=== PATIENT | male | born 1980 | race Caucasian/White ===

== ENCOUNTER 2021-08-26 13:31 | Emergency (ER) | payer MEDICARE, OTHER ==
[~2021-08-26] VITALS: Ht 182.9 cm; Wt 53.0 kg
[~2021-08-26 13:31] MED LIST: GABA-585 PO; INSU100I17 SQ; INSU100V13 SQ; SERT25TA PO; TRAZ-120 PO
--- NOTE | 2021-08-26 13:59 | PHYS DOC ---
Past History Past Medical History: Depression, Diabetes Past Surgical History: No Surgical History Alcohol Use: None Drug Use: Marijuana Adult General Chief Complaint Chief Complaint: MECHANICAL FALL HPI HPI Patient is a 41-year-old male presenting via EMS for hyperglycemia and fall. Patient was at home in the shower when he reportedly got weak and had a syncopal episode per daughter who serves as primary caregiver. Patient fell and hit posterior head on side of shower and was initially unresponsive but this self resolved in less than 30 seconds. Patient's blood sugar was checked and read high and so, decision was made to call EMS. On arrival, patient found to be hyperglycemic with [id number] glucose reading high otherwise hemodynamically stable. He was subsequently transported to our facility for evaluation. On arrival, patient not speaking but nodding yes or no to questions, unknown if this is his baseline. Denies being in any pain. Confirms history of presenting illness that he had a syncopal episode with prodromal symptoms of lightheadedness and dizziness prior to his fall. Reports he has otherwise been at baseline health with no recent febrile illness or other sick contact or travel. Does disclose he is a brittle type I diabetic without use of a CGM or recent medication changes Review of Systems Review of Systems Fourteen body systems of review of systems have been reviewed. See HPI for pertinent positives and negative responses, other carbajal all other systems are negative, non-pertinent or non-contributory Allergies Allergies Allergies Coded Allergies Type Severity Reaction Last Updated Verified No Known Drug Allergies 08/27/15 No Physical Exam Physical Exam Constitutional: Appears older than stated age, thin and grossly malnourished, no acute distress, non-toxic appearance. HENT: Normocephalic, atraumatic, bilateral external ears normal, oropharynx moist, no oral exudates, nose normal. Airway patent, tolerating secretions Eyes: PERRLA, EOMI, conjunctiva normal, no discharge. Neck: Normal range of motion, no tenderness, supple, no stridor. Cardiovascular: Heart rate regular, sinus rhythm, no murmurs rubs or gallops Lungs & Thorax: Bilateral breath sounds clear to auscultation Abdomen: Bowel sounds normal, soft, no tenderness, no masses, no pulsatile masses. Nonsurgical abdomen, no peritoneal signs Skin: Warm, dry, no erythema, no rash. Skin breakdown with ulcer present to right anterior knee with 3 cm erythematous border, there is also skin breakdown and ulcer present to lateral portion of the distal right lower extremity superior to lateral malleolus that involves epidermis and dermis only. 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 There is mild skin breakdown to sacral area Back: No tenderness, no CVA tenderness. Extremities: No tenderness, no cyanosis, no clubbing, ROM intact, no edema. Neurologic: Alert and oriented X 3, grossly normal motor & sensory function, no focal deficits noted. Psychologic: Flat affect and mood Current Patient Data Vital Signs Vital Signs Date Time Temp Pulse Resp B/P (MAP) Pulse Ox O2 Delivery O2 Flow Rate FiO2 08/26/21 13:40 97.4 92 24 112/70 (84) 98 Room Air Vital Signs Date Time Temp Pulse Resp B/P (MAP) Pulse Ox O2 Delivery O2 Flow Rate FiO2 08/26/21 13:40 97.4 92 24 112/70 (84) 98 Room Air Lab Results Laboratory Tests Test 08/26/21 13:41 08/26/21 13:50 08/26/21 14:10 08/26/21 14:14 Glucose (Fingerstick) 528 mg/dL White Blood Count 11.7 x10^3/uL Red Blood Count 2.79 x10^6/uL Hemoglobin 7.9 g/dL Hematocrit 25.4 % Mean Corpuscular Volume 91 fL Mean Corpuscular Hemoglobin 28 pg Mean Corpuscular Hemoglobin Concent 31 g/dL Red Cell Distribution Width 15.3 % Platelet Count 538 x10^3/uL Neutrophils (%) (Auto) 78 % Lymphocytes (%) (Auto) 14 % Monocytes (%) (Auto) 6 % Eosinophils (%) (Auto) 2 % Basophils (%) (Auto) 1 % Neutrophils # (Auto) 9.1 x10^3uL Lymphocytes # (Auto) 1.6 x10^3/uL Monocytes # (Auto) 0.7 x10^3/uL Eosinophils # (Auto) 0.2 x10^3/uL Basophils # (Auto) 0.1 x10^3/uL Sodium Level 137 mmol/L Potassium Level 7.3 mmol/L Chloride Level 108 mmol/L Carbon Dioxide Level 24 mmol/L Anion Gap 5 Blood Urea Nitrogen 17 mg/dL Creatinine 1.1 mg/dL Estimated GFR (Cockcroft-Gault) 74.1 BUN/Creatinine Ratio 15 Glucose Level 631 mg/dL Calcium Level 8.3 mg/dL Total Bilirubin 0.2 mg/dL Aspartate Amino Transf (AST/SGOT) 25 U/L Alanine Aminotransferase (ALT/SGPT) 30 U/L Alkaline Phosphatase 244 U/L Troponin I High Sensitivity < 4 ng/L Total Protein 5.7 g/dL Albumin 1.8 g/dL Albumin/Globulin Ratio 0.5 Bedside Venous pH 7.27 Bedside Venous pCO2 48 mmHg Bedside Venous pO2 35 mmHg Venous Blood HCO3 22 mmol/L POC Venous O2 Saturation (Ladan) 58 % Bedside FiO2 21 Influenza Type A (Rapid) Negative Influenza Type B (Rapid) Negative SARS-CoV-2 Antigen (Rapid) Negative Test 08/26/21 15:06 08/26/21 15:47 08/26/21 15:51 08/26/21 16:14 Lactic Acid Level 1.7 mmol/L Acetone Level Neg Urine Collection Type Unknown Urine Color Yellow Urine Clarity Clear Urine pH 5.5 Urine Specific [place] 1.015 Urine Protein Neg Urine Glucose (UA) >=1000 mg/dL Urine Ketones (Stick) Neg mg/dL Urine Blood Trace Urine Nitrite Neg Urine Bilirubin Neg Urine Urobilinogen Dipstick 0.2 mg/dL Urine Leukocyte Esterase Neg Urine RBC Occ /HPF Urine WBC 0 /HPF Urine Bacteria 0 /HPF Urine Opiates Screen Neg Urine Methadone Screen Neg Urine Barbiturates Neg Urine Phencyclidine Screen Neg Urine Amphetamine/Methamphetamine Neg Urine Benzodiazepines Screen Neg Urine Cocaine Screen Neg Urine Cannabinoids Screen Neg Urine Ethyl Alcohol Neg Glucose (Fingerstick) 538 mg/dL 507 mg/dL Test 08/26/21 17:11 Glucose (Fingerstick) 383 mg/dL Current Medications Medications (Trade) Dose Ordered Sig/Soledad Route PRN Reason Start Time Stop Time Status Last Admin Dose Admin Sodium Chloride 1,000 ml @ 1,000 mls/hr 1X ONCE IV 08/26/21 14:15 08/26/21 15:14 DC 08/26/21 14:30 Insulin Human Regular (HumuLIN R VIAL) 15 unit 1X ONCE IV 08/26/21 15:15 08/26/21 15:16 DC 08/26/21 15:54 Calcium Gluconate (Calcium Gluconate) 1,000 mg 1X ONCE IV 08/26/21 15:15 08/26/21 15:16 DC 08/26/21 15:20 EKG EKG EKG ordered and interpreted by myself at 1345 hrs. as sinus rhythm at 92 bpm, unremarkable intervals, no axis deviation, no acute ischemic findings, no STEMI Radiology/Procedures Radiology/Procedures EXAM: Head and cervical spine CT without contrast. HISTORY: Fall. TECHNIQUE: Computed tomographic images of the head and cervical spine were obtained without contrast. *One or more of the following individualized dose reduction techniques were utilized for this examination: 1. Automated exposure control. 2. Adjustment of the mA and/or kV according to patient size. 3. Use of iterative reconstruction technique. COMPARISON: 07/28/2014. FINDINGS: Head: There is no acute intracranial hemorrhage. There is no mass effect or midline shift. The ventricles are prominent in size due to cerebral volume loss. This is greater than expected for patient age. The brandon-white matter differentiation pattern is intact. There is no suspicious calvarial lesion. The orbits, paranasal sinuses mastoid air cells are unremarkable. Cervical spine: There is minimal degenerative anterolisthesis of C3 on C6. There is mild endplate remodeling and disc space narrowing, primarily at C4-C5. There is no fracture or suspicious osseous lesion. There is no significant foraminal or central canal stenosis. IMPRESSION: 1. No acute intracranial finding or evidence of acute cervical spine trauma. 2. Cerebral volume loss. This is greater than expected for patient age. 3. Mild degenerative change involving the cervical spine, described above. Electronically signed by: Katarina Mejia MD (08/26/2021 2:28 PM) [id number] /////////// Exam: Chest one view INDICATION: Frontal view of the chest TECHNIQUE: Hyperglycemia Comparisons: 04/26/2015 FINDINGS: The cardiomediastinal silhouette and pulmonary vessels are within normal limits. Hazy bibasilar airspace disease greater in the infrahilar regions. No pleural effusion. IMPRESSION: Hazy bibasilar airspace disease, may relate to edema or atypical infectious process Electronically signed by: Shauna Capellan MD (08/26/2021 3:07 PM) [id number] Heart Score C/O Chest Pain: No HEART Score for Chest Pain: HEART Score for Chest Pain Response (Comments) Value History Slighlty/Non-Suspicious 0 ECG Normal 0 Age < 45 0 Risk Factors 1 or 2 Risk Factors 1 Troponin < Normal Limit 0 Total 1 Risk Factors: Risk Factors: DM, Current or recent (<one month) smoker, HTN, HLP, family history of CAD, obesity. Risk Scores: Risk Factors: DM, Current or recent (<one month) smoker, HTN, HLP, family history of CAD, obesity. Course & Med Decision Making Course & Med Decision Making Airway patent, breathing unlabored, IV access and vitals obtained and grossly unremarkable HPI limited due to patient nodding yes or no answers and unknown baseline, physical exam and subsequent ER work-up obtained concerning for hyperglycemia, not in DKA with hyperkalemia. 1 g calcium gluconate, 1 L IV normal saline, and subsequent 15 units insulin administered Patient's daughter presented later at bedside and assisted with history. States patient has had significant hospitalization recently where he was found approximately 10 hours after an illicit drug overdose unresponsive with agonal breathing and subsequently intubated August 12 He was hospitalized at [facility] and spent several days, received inpatient antibiotic therapy for diabetic related ulcers, and was subsequently extubated and discharged back to home 3 days ago pending establishment of home health services Daughter reports that she has been the primary caregiver of the patient and has been unable to provide level of care patient is requiring. Patient's Levemir medication was discontinued during recent hospitalization due to hypoglycemic episodes, takes NovoLog, levothyroxine, Zyprexa currently I have updated daughter and patient on entirety of ER work-up and need for hospital transfer for higher acuity of care given capacity issues here at [facility]. [facility] contacted but they report they were at full capacity. [facility] contacted and ultimately accepted patient transfer Dragdivine Disclaimer Dragon Disclaimer This electronic medical record was generated, in whole or in part, using a voice recognition dictation system. Departure Departure: Impression: Primary Impression: Hyperkalemia Additional Impressions: Hyperglycemia due to type 1 diabetes mellitus Anoxic brain injury History of repeated overdose Hypothyroid Disposition: 02 SHORT TERM HOSPITAL ([facility]) Admitting Physician: Other (DR PEACE) Condition: STABLE Referrals: PCP,NO (PCP) Problem Qualifiers OK ACOSTA DO Aug 26, 2021 13:59
[2021-08-26 14:15] LABS: BASO # 0.1 x10^3/uL (0.0-0.2); BASO % 1 % (0-3); EOS # 0.2 x10^3/uL (0.0-0.7); EOS % 2 % (0-3); HEMATOCRIT 25.4 % (39.0-53.0); HEMOGLOBIN 7.9 g/dL (13.0-17.5); LYMPH # 1.6 x10^3/uL (1.0-4.8); LYMPH % 14 % (24-48); MEAN CORPUSCULAR HEMOGLOBIN 28 pg (25-35); MEAN CORPUSCULAR HGB CONC 31 g/dL (31-37); MEAN CORPUSCULAR VOLUME 91 fL (79-100); MONO # 0.7 x10^3/uL (0.0-1.1); MONO % 6 % (0-9); NEUT # 9.1 x10^3uL (1.8-7.7); NEUT % 78 % (31-73); PLATELET COUNT 538 x10^3/uL (140-400); RED BLOOD COUNT 2.79 x10^6/uL (4.30-5.70); RED CELL DISTRIBUTION WIDTH 15.3 % (11.5-14.5); WHITE BLOOD COUNT 11.7 x10^3/uL (4.0-11.0)
[2021-08-26] MEDS: IV NORMAL SALINE 1,000ML 1,000 ML IV ONE (14:30)
--- NOTE | 2021-08-26 14:31 | RAD ---
EXAM: Head and cervical spine CT without contrast. HISTORY: Fall. TECHNIQUE: Computed tomographic images of the head and cervical spine were obtained without contrast. *One or more of the following individualized dose reduction techniques were utilized for this examina tion: 1. Automated exposure control. 2. Adjustment of the mA and/or kV according to patient size. 3. Use of iterative reconstruction technique. COMPARISON: 07/28/2014. FINDINGS: Head: There is no acute intracranial hemorrhage. There is no mass effect or midline shift. The ventri cles are prominent in size due to cerebral volume loss. This is greater than expected for patient age . The brandon-white matter differentiation pattern is intact. There is no suspicious calvarial lesion. T he orbits, paranasal sinuses mastoid air cells are unremarkable. Cervical spine: There is minimal degenerative anterolisthesis of C3 on C6. There is mild endplate rem odeling and disc space narrowing, primarily at C4-C5. There is no fracture or suspicious osseous lesi on. There is no significant foraminal or central canal stenosis. IMPRESSION: 1. No acute intracranial finding or evidence of acute cervical spine trauma. 2. Cerebral volume loss. This is greater than expected for patient age. 3. Mild degenerative change involving the cervical spine, described above. Electronically signed by: Katarina Mejia MD (08/26/2021 2:28 PM) [id number]
[2021-08-26 14:52] LABS: ALBUMIN 1.8 g/dL (3.4-5.0); ALBUMIN/GLOBULIN RATIO 0.5 (1.0-1.7); CALCIUM 8.3 mg/dL (8.5-10.1); CREATININE 1.1 mg/dL (0.7-1.3); GFR 74.1; TOTAL BILIRUBIN 0.2 mg/dL (0.2-1.0); TOTAL PROTEIN 5.7 g/dL (6.4-8.2)
[2021-08-26 14:55] LABS: POTASSIUM 7.3 mmol/L (3.5-5.1)
[2021-08-26 14:59] LABS: INFLUENZA A PATIENT NEGATIVE (NEGATIVE); INFLUENZA B PATIENT NEGATIVE (NEGATIVE)
--- NOTE | 2021-08-26 15:09 | RAD ---
Exam: Chest one view INDICATION: Frontal view of the chest TECHNIQUE: Hyperglycemia Comparisons: 04/26/2015 FINDINGS: The cardiomediastinal silhouette and pulmonary vessels are within normal limits. Hazy bibasilar airspace disease greater in the infrahilar regions. No pleural effusion. IMPRESSION: Hazy bibasilar airspace disease, may relate to edema or atypical infectious process Electronically signed by: Shauna Capellan MD (08/26/2021 3:07 PM) [id number]
[2021-08-26] MEDS: CALCIUM GLUCONATE 1,000 MG/10 ML VIAL IV ONE (15:20)
[2021-08-26] MEDS: INSULIN REGULAR 100 UNIT/ML 3ML VIAL. IV ONE (15:54)
--- NOTE | 2021-08-26 16:07 | EKG ---
[address] [address] Test Date: 2021-08-26 Test Time: 13:42:52 Pat Name: GALDINO CONNOR Department: Room: Gender: M Director Clinical Data: RITA : 1980 Requested By: OK ACOSTA Order Number: [id number] Reading MD: Measurements Intervals [place] Rate: 92 P: 90 WV: 150 QRS: 78 QRSD: 98 T: 78 QT: 362 QTc: 453 Interpretive Statements SINUS RHYTHM LOW LIMB LEAD VOLTAGE NO SPECIFIC ECG ABNORMALITIES RI6.02 No previous ECG available for comparison
[2021-08-26 16:13] LABS: BACTERIA,URINE 0 /HPF (0-FEW); BILIRUBIN,URINE NEG (NEG); CLARITY,URINE CLEAR; COLOR,URINE YELLOW; GLUCOSE,URINE >=1000 mg/dL (NEG); NITRITE,URINE NEG (NEG); RBC,URINE OCC /HPF (0-2); UROBILINOGEN,URINE 0.2 mg/dL (0.2 mg/dL); WBC,URINE 0 /HPF (0-4)
[2021-08-26 16:15] LABS: BARBITURATES NEG (NEG); BENZODIAZEPINES NEG (NEG); CANNABINOIDS NEG (NEG); COCAINE NEG (NEG); METHADONE NEG (NEG); OPIATES NEG (NEG); PHENCYCLIDINE NEG (NEG)
[2021-08-26 16:27] LABS: AMPHETAMINE/METHAMPHETAMINE NEG (NEG)
[2021-08-26 18:24] VITALS: BP 111/70
[2021-08-26 19:08] LABS: CALCIUM 8.4 mg/dL (8.5-10.1); GFR 82.8
== END 2021-08-26 19:54 | disposition short-term general hospital (02) ==
LOC: ER 13:31
DX: S06.9X0A Unspecified intracranial injury without loss of consciousness, initial encounter (principal); E10.65 Type 1 diabetes mellitus with hyperglycemia; E87.5 Hyperkalemia; R09.02 Hypoxemia; E03.9 Hypothyroidism, unspecified; F32.9 Major depressive disorder, single episode, unspecified; Z20.822 Contact with and (suspected) exposure to COVID-19; W18.39XA Other fall on same level, initial encounter; Y93.89 Activity, other specified; Y92.89 Other specified places as the place of occurrence of the external cause; Y99.8 Other external cause status
CPT/HCPCS: 36415; 70450; 71045; 72125; 80048; 80053; 80307; 81001; 82010; 82803; 82947; 83605; 84484; 85025; 87040; 87428; 93005; 96361; 96374; 96375; 99285; C9803; J0610; J1815; J7030; U0003

== ENCOUNTER 2021-11-26 14:09 | Inpatient (IN) | payer MEDICARE, OTHER ==
[~2021-11-26] VITALS: Ht 182.9 cm; Wt 52.2 kg
[~2021-11-26 14:09] MED LIST changes: +AMIN30LI2 PO; +ASCO500C PO; +CALC500T14 PO; +CHOL5POW PO; +FERR325T14 PO; +INSU100C4 SQ; +INSU100I11 SQ; +INSU100I13 SQ; +LACT1CAP19 PO; +LEVO500T9 PO; +LEVO75TA5 PO; +LOPE2TAB27 PO; +MULT-445 PO; +MUPI15CR8 TP; +NICO1PAT25 TP; +RIFA550T4 PO; +SODI10PO PO; +TAMS0.4C97 PO; +THIA100T57 PO
[2021-11-26] MEDS ORDERED: IV NORMAL SALINE 1,000ML 1,000 ML IV ONE (14:30)
--- NOTE | 2021-11-26 14:35 | PHYS DOC ---
Past History Past Medical History: Depression, Diabetes Additional Past Medical Histor: ANOXIC BRAIN DAMAGE, ENCEPHALOPATHY, Past Surgical History: Cholecystectomy, Other Additional Past Surgical Histo: LEFT LOWER LEG AMPUTATION Alcohol Use: None Drug Use: Marijuana General Adult EDM: Chief Complaint: HYPERGLYCEMIA HPI: HPI: 41-year-old male presents with hyperglycemia and nonhealing wounds. Patient is diabetic and he states that his glucometer read high. He has had difficulty keeping his blood sugars under control. He has a left below the knee amputation with skin breakdown of the stump. He also has skin tears of the right lower extremity. He denies fever or chills. His amputation was 2 years ago for diabetes. Review of Systems: Review of Systems: Constitutional: Denies fever or chills Eyes: Denies change in visual acuity HENT: Denies nasal congestion or sore throat Respiratory: Denies cough or shortness of breath Cardiovascular: Denies chest pain or edema GI: Denies abdominal pain, nausea, vomiting, bloody stools or diarrhea : Denies dysuria Musculoskeletal: Left below the knee amputation Integument: Nonhealing skin wounds of the left lower extremity stump, right lowe r extremity skin tears with delayed healing. Neurologic: Denies headache, focal weakness or sensory changes Endocrine: Denies polyuria or polydipsia Lymphatic: Denies swollen glands Psychiatric: Denies depression or anxiety Current Medications: Current Meds: Current Medications Medications (Trade) Dose Ordered Sig/Soledad Start Time Stop Time Status Last Admin Dose Admin Sodium Chloride 1,000 ml @ 1,000 mls/hr 1X ONCE 11/26/21 14:30 11/26/21 15:29 UNV Allergies: Allergies: Allergies Coded Allergies Type Severity Reaction Last Updated Verified No Known Drug Allergies 08/27/15 No Physical Exam: PE: Constitutional: Well developed, well nourished, no acute distress, non-toxic appearance. [] HENT: Normocephalic, atraumatic, bilateral external ears normal, oropharynx moist, no oral exudates, nose normal. [] Eyes: PERRLA, EOMI, conjunctiva normal, no discharge. [] Neck: Normal range of motion, no tenderness, supple, no stridor. [] Cardiovascular:Heart rate regular rhythm, no murmur [] Lungs & Thorax: Bilateral breath sounds clear to auscultation [] Abdomen: Bowel sounds normal, soft, no tenderness, no masses, no pulsatile masses. [] Skin: Warm, dry, no erythema, no rash. [] Back: No tenderness, no CVA tenderness. [] Extremities: No tenderness, no cyanosis, no clubbing, ROM intact, no edema. [] Neurologic: Alert and oriented X 3, normal motor function, normal sensory function, no focal deficits noted. [] Psychologic: Affect normal, judgement normal, mood normal. [] EKG: EKG: [] Radiology/Procedures: Radiology/Procedures: [] Heart Score: C/O Chest Pain: N/A Risk Factors: Risk Factors: DM, Current or recent (<one month) smoker, HTN, HLP, family history of CAD, obesity. Risk Scores: Score 0 - 3: 2.5% MACE over next 6 weeks - Discharge Home Score 4 - 6: 20.3% MACE over next 6 weeks - Admit for Clinical Observation Score 7 - 10: 72.7% MACE over next 6 weeks - Early Invasive Strategies Course & Med Decision Making: Course & Med Decision Making Pertinent Labs and Imaging studies reviewed. (See chart for details) The patient's labs are significant for elevated liver enzymes which appear to be new compared to his previous in the chart. His hemoglobin is 8.6 which is similar to previous in the chart. His blood sugar was almost 600 and we gave him a liter normal saline and 20 units of regular insulin. His anion gap is normal. His blood sugar is now 380 and I will order another 10 units. I spoke with his doctor, Dr. Morrell and he has accepted the patient for admission at 1635. [] Dragon Disclaimer: Cheri Disclaimer: This electronic medical record was generated, in whole or in part, using a voice recognition dictation system. Departure Departure: Impression: Primary Impression: Hyperglycemia due to diabetes mellitus Additional Impression: Elevated liver enzymes Disposition: ADMITTED INPATIENT Admitting Physician: Baylee Morrell Referrals: BAYLEE MORRELL MD (PCP) JESSA GIMENEZ DO November 26, 2021 14:35
[2021-11-26] MEDS ORDERED: INSULIN REGULAR 100 UNIT/ML 3ML VIAL. IV ONE ×2 (15:00→17:00)
[2021-11-26] MEDS ORDERED: ONDANSETRON PF 4 MG/2 ML VIAL. IVP ONE (15:00)
[2021-11-26] MEDS ORDERED: MORPHINE SULFATE 2 MG/ML DISP.SYRIN. IV ONE (15:00)
[2021-11-26 15:41] LABS: BASO # 0.1 x10^3/uL (0.0-0.2); BASO % 2 % (0-3); EOS # 0.2 x10^3/uL (0.0-0.7); EOS % 4 % (0-3); HEMATOCRIT 26.5 % (39.0-53.0); HEMOGLOBIN 8.6 g/dL (13.0-17.5); LYMPH # 1.8 x10^3/uL (1.0-4.8); LYMPH % 44 % (24-48); MEAN CORPUSCULAR HEMOGLOBIN 27 pg (25-35); MEAN CORPUSCULAR HGB CONC 32 g/dL (31-37); MEAN CORPUSCULAR VOLUME 84 fL (79-100); MONO # 0.4 x10^3/uL (0.0-1.1); MONO % 8 % (0-9); NEUT # 1.8 x10^3uL (1.8-7.7); NEUT % 42 % (31-73); PLATELET COUNT 413 x10^3/uL (140-400); RED BLOOD COUNT 3.17 x10^6/uL (4.30-5.70); RED CELL DISTRIBUTION WIDTH 14.2 % (11.5-14.5); WHITE BLOOD COUNT 4.2 x10^3/uL (4.0-11.0)
[2021-11-26 15:46] LABS: CREATININE 1.1 mg/dL (0.7-1.3); GFR 74.1; POTASSIUM 3.1 mmol/L (3.5-5.1)
[2021-11-26 15:54] LABS: ALBUMIN 2.3 g/dL (3.4-5.0); ALBUMIN/GLOBULIN RATIO 0.6 (1.0-1.7); TOTAL BILIRUBIN 0.2 mg/dL (0.2-1.0); TOTAL PROTEIN 6.2 g/dL (6.4-8.2)
[2021-11-26] MEDS ORDERED: ONDANSETRON PF 4 MG/2 ML VIAL. IVP PRN (16:45)
[2021-11-26] MEDS ORDERED: ACETAMINOPHEN 325 MG TABLET PO PRN (16:45)
--- NOTE | 2021-11-26 17:57 | RAD ---
EXAMINATION: CT ABDOMEN+PELVIS WO CLINICAL HISTORY: Elevated liver enzymes. TECHNIQUE: Imaging of the abdomen and pelvis was performed without intravenous contrast using standar d technique, scanning from just above the dome of the diaphragm to the symphysis pubis. Unenhanced i maging is limited for the evaluation of some intra-abdominal and pelvic pathology. CT Dose Reduction Employed: One or more of the following individualized dose reduction techniques wer e utilized for this examination: 1. Automated exposure control 2. Adjustment of the mA and/or kV ac cording to patient size 3. Use of iterative reconstruction technique. COMPARISON: 11/10/2021 FINDINGS: Significantly motion degraded images of the lung bases demonstrate minimal subsegmental atelectasis a nd/or scarring. Cholecystectomy. Stable appearance of the liver. Pancreas, spleen, adrenal glands, and kidneys unrema rkable. Moderately filled urinary bladder borderline circumferential wall thickening, nonspecific. No dilated bowel. Appendix not definitively visualized. Diffuse mesenteric haziness with mild free fluid in the lower abdomen. No abdominal aortic or iliac a rtery aneurysm. No evidence of acute osseous abnormality. 2 possible small subcutaneous lipomas overlying the right a nd left lower quadrants near the level of the umbilicus. IMPRESSION: Evaluation limited by lack of intravenous or oral contrast in patient with thin body habitus. Moderately filled urinary bladder with borderline circumferential wall thickening, nonspecific but co uld be related to cystitis. Nonspecific diffuse mesenteric haziness and mild free fluid in the lower abdomen. Electronically signed by: Luis Carney DO (11/26/2021 5:55 PM) [facility]
[2021-11-26] MEDS ORDERED: DEXTROSE 50% 25 GM / 50ML DISP.SYRIN. IV ONE ×2 (20:15→20:30)
--- NOTE | 2021-11-26 22:40 | NUR ---
PT ADMITTED TO RM 115 VIA EMS ACCOMPANIED BY NURSING CHILD DEVELOPMENT SPECIALIST. VS OBTAINED. PT AOX4. PT COMPLAINS OF PAIN RATING 6/10 ON NUMERIC SCALE AT THIS TIME. PRN MORPHINE GIVEN INDICATED. POC DISCUSSED W/ VERBALIZED UNDERSTANDING.
[2021-11-26] MEDS: MORPHINE SULFATE 2 MG/ML DISP.SYRIN. IVP PRN (22:43)
[2021-11-26 22:49] VITALS: BP 108/68
[2021-11-27 06:19] VITALS: BP 107/67
[2021-11-27] MEDS ORDERED: DEXTROSE 50% 25 GM / 50ML DISP.SYRIN. IV PRN (07:00)
[2021-11-27] MEDS: MORPHINE SULFATE 2 MG/ML DISP.SYRIN. IVP PRN ×3 (07:35→14:21)
[2021-11-27] MEDS ORDERED: INSULIN LISPRO 300 UNITS/3 ML VIAL. SQ ONE ×2 (08:00→09:15)
[2021-11-27] MEDS: INSULIN LISPRO 300 UNITS/3 ML VIAL. SQ SCH ×3 (08:20→17:00)
[2021-11-27] MEDS ORDERED: INSULIN LISPRO 300 UNITS/3 ML VIAL. SQ SCH (09:45)
[2021-11-27] MEDS: TAMSULOSIN 0.4 MG CAP.ER.24H. PO SCH (10:43)
[2021-11-27] MEDS: LEVOTHYROXINE 75 MCG TABLET PO SCH (10:43)
[2021-11-27] MEDS: FERROUS SULFATE 325 MG TABLET. PO SCH (10:43)
[2021-11-27] MEDS: ASCORBIC ACID 500 MG TABLET PO SCH (10:43)
[2021-11-27] MEDS: NICOTINE 14MG PATCH. TD SCH (10:44)
[2021-11-27 11:59] VITALS: BP 94/55
[2021-11-27] MEDS: INSULIN GLARGINE SYRINGE. SQ SCH ×2 (12:41→21:00)
[2021-11-27] MEDS: levoFLOXacin 500 MG TABLET PO SCH (12:41)
[2021-11-27] MEDS: GABAPENTIN 100 MG CAPSULE. PO SCH ×2 (14:03→20:45)
--- NOTE | 2021-11-27 14:45 | NUR ---
Wound Care Wound Type/Assessment: Patient seen per wound care consult. See wound assessment. Patient has multiple diabetic ulcers on the right and left lower extremities. Patient familiar to wound care from his last admission. At that time he had stated the wounds had been there for a while. The left knee is the most concerning we were able to probe bone and there is significant amount of undermining of a depth of 1.6 cm. The right 2nd, 3rd, 4th and 5th toe wounds are dry slough eschar covered. The right lower leg and right knee have some slough with pale pink tissue and some eschar. The left leg has multiple openings at various stages, some eschar covered, slough, and open red non granulation and pale pink tissue. the right great toe has some depth and has some slough, and red non-granulation tissue All wounds cleaned, measured, pictured, assessed, and redressed with the recommended dressings. Treatment Recommendations/Plan: Cleanse all wounds and pat dry. R 2nd, 3rd, 4th & 5th toes:Cleanse the wound then paint with Betadine and leave open to air. Apply daily. R great toe- Cleanse the wound then apply apply medi-honey gel to Xeroform gauze and place to wound bed, cover with gauze or a foam and tape. Change on Wednesday and Wednesday. L knee-Cleanse the wound then pack a small strip of Aquacel Ag to depth and undermining of wound, then cover with, Medihoney gel to the Xeroform gauze, ABD pad and Kerlix. Change on Wednesday and Wednesday. Right leg, right knee, Left leg and L BKA-Cleanse the wound then apply Medihoney gel to Xeroform gauze and place to wound bed, cover with ABD pad, and wrap with Kerlix. Change on Wednesday and Wednesday. Education provided: Patient educated on dressing changes and PU treatment and prevention. Offloading surface/device: Patient able to self turn. Recommended Referrals/Tests: Patient had x-ray of the left knee from last admission- consider MRI Patient should follow up in the wound clinic following discharge. Patient does have home health- and recommend this continue to assist with the dressing changes. Discharge Recommendations for dressings: Dressing change instructions left in room, as well as extra dressing changes. patient was given information on the wound clinic at his inpatient visit. Wound care will follow up on 12/04/21.
--- NOTE | 2021-11-27 15:33 | RAD ---
EXAM: Abdomen sonogram. HISTORY: Elevated liver function laboratory values. TECHNIQUE: Sonographic imaging of the abdomen was performed. COMPARISON: CT dated 11/26/2021. FINDINGS: The liver is enlarged. There is hepatic steatosis. No focal hepatic lesion is seen. The com mon bile duct is normal in caliber. The gallbladder is surgically absent. The kidneys are normal in s ize. There is no hydronephrosis. There is an upper normal pancreatic duct. No pancreatic lesion is se en. The spleen is enlarged, measuring 14.0 cm. The aorta is normal in caliber. The inferior vena cava is patent. IMPRESSION: 1. Hepatomegaly and hepatic steatosis. 2. Splenomegaly. 3. Cholecystectomy. Electronically signed by: Katarina Mejia MD (11/27/2021 3:31 PM) [id number]
[2021-11-27 16:36] VITALS: BP 113/68
[2021-11-27 18:55] VITALS: BP 118/68
[2021-11-27] MEDS: METOCLOPRAMIDE HCL 10 MG/2 ML VIAL. IVP SCH (19:36)
[2021-11-27] MEDS: MORPHINE SULFATE 2 MG/ML DISP.SYRIN. IV PRN (19:37)
[2021-11-27] MEDS: CHOLESTYRAMINE/ASPARTAME 4 GM PACKET PO SCH (20:45)
[2021-11-27] MEDS: CALCIUM CARBONATE 500 MG TABLET PO SCH (20:45)
[2021-11-27] MEDS: traZODone 50 MG TABLET. PO SCH (20:45)
[2021-11-27] MEDS: LACTOBACILLUS RHAMNOSUS GG 1 CAPSULE. PO SCH (20:45)
--- NOTE | 2021-11-27 20:47 | HP ---
DATE OF SERVICE: 11/27/2021 ADMIT DATE: 11/26/2021 HISTORY OF PRESENT ILLNESS: A 41-year-old male came in with severe dehydration and acute lactic acidosis. He had a blood sugar greater than 600. The patient was given IM injections of insulin and brought the sugars down into the 100s, but he was markedly dehydrated, emaciated. This patient has marked musculoskeletal atrophy throughout. The patient initially came in through the Emergency Room. He has had a left [id number] amputation from previous histories of his diabetes and poor circulation. In any case, the patient was admitted for severe hyperglycemia, dehydration, and the like as well as marked elevated liver enzymes. PAST MEDICAL HISTORY: Includes peripheral neuropathy, hypertension, DVT, cholecystectomy, GERD, muscle weakness, amputation of the left lower leg, hypothyroidism, depression, tobacco abuse, encephalopathy over the past, and DKA over the past. ALLERGIES: Has no known allergies. FAMILY HISTORY: Noncontributory. SOCIAL HISTORY: As indicated. The patient has heavy use of alcohol, at times smoking and the patient is a FULL CODE. REVIEW OF SYSTEMS: The patient really not able to give much of a history as he has markedly decreased mentation and confusion from the situation of his diabetes. MEDICATIONS: His medications include that of levothyroxine, Flomax, Nicoderm patches, ferrous sulfate, cholestyramine, gabapentin, trazodone, calcium carbonate, loperamide, Culturelle, Lantus, thiamine, ascorbic acid, and amino acids. PHYSICAL EXAMINATION: GENERAL: This is an ill-appearing white male, markedly cachectic, basically unresponsive. He has marked musculoskeletal atrophy as noted, extreme tenting of the skin, dry skin. VITAL SIGNS: Blood pressure 90/51, respirations 16, pulse 70, afebrile, 99 on room air. HEENT: The patient's head was atraumatic, normocephalic. SKIN: Pale appearing and very dry, otherwise, mouth and throat show poor dentition. NECK: Stiff, but supple. LUNGS: Diminished throughout, showing ribs. No muscle noted to torso of the body per se. ABDOMEN: The patient's abdomen was soft, nontender, no rebounding, no guarding. Positive bowel sounds. No hepatosplenomegaly was noted. EXTREMITIES: Show again musculoskeletal atrophy, amputation of left lower leg. NEUROLOGIC: As noted decreased mentation. LABORATORY DATA: Sodium 128, potassium 3.1. Liver enzymes: AST 724, ALT 532, alkaline phosphatase 573, albumin 2.3. The patient will be placed on as noted close monitoring of his sugars giving him insulin as well as fluids and make further evaluation on him as indicated. Ultrasound completed. CT abdomen and pelvis as he has had a history of pancreatitis in the past, nothing significant there was noted. The patient will be monitored carefully, make further evaluation on him as indicated and make adjustments on his insulin to bring down the blood sugar and increase fluids as noted. CLAUDIA DR: Bjorn TID: [id number]
[2021-11-27] MEDS ORDERED: SODIUM ZIRCONIUM CYCLOSILICATE 10 GM PO SCH (21:00)
[2021-11-27] MEDS ORDERED: NON FORMULARY ITEM (Amino Acids/Protein Hydrolys (Pro-Stat Liquid) 30 ML) PO SCH (21:00)
--- NOTE | 2021-11-27 21:00 | NUR ---
Accu check 59. notified. Orders received et noted. PM Lantus 30 units held.
[2021-11-27] MEDS ORDERED: INSULIN GLARGINE SYRINGE. SQ ONE (21:30)
--- NOTE | 2021-11-27 21:50 | NUR ---
entered room to give Lantus 10 units as ordered. Pt. had 250ml of Emesis. notified. Orders received et noted.
[2021-11-27] MEDS ORDERED: PROCHLORPERAZINE 10 MG/2 ML VIAL. IV PRN (22:00)
[2021-11-27] MEDS ORDERED: PROCHLORPERAZINE 10 MG/2 ML VIAL. IM PRN (22:00)
--- NOTE | 2021-11-27 22:10 | NUR ---
Compazine given IVP. for Nausea.
--- NOTE | 2021-11-27 23:00 | NUR ---
Pt. denies Nausea. [place] Ju[employer] et [place] sandwich given.
[2021-11-28 00:05] VITALS: BP 97/59
--- NOTE | 2021-11-28 04:05 | NUR ---
BS 58. AetO X4. [place] Juice et peanut butter karen crackers given.
[2021-11-28] MEDS: MORPHINE SULFATE 2 MG/ML DISP.SYRIN. IV PRN ×6 (05:31→22:13)
[2021-11-28] MEDS: levoFLOXacin 500 MG TABLET PO SCH (05:32)
[2021-11-28] MEDS: LEVOTHYROXINE 75 MCG TABLET PO SCH (05:32)
[2021-11-28 06:03] LABS: BASO # 0.1 x10^3/uL (0.0-0.2); BASO % 2 % (0-3); EOS # 0.3 x10^3/uL (0.0-0.7); EOS % 6 % (0-3); HEMATOCRIT 21.5 % (39.0-53.0); HEMOGLOBIN 7.3 g/dL (13.0-17.5); LYMPH # 2.2 x10^3/uL (1.0-4.8); LYMPH % 41 % (24-48); MEAN CORPUSCULAR HEMOGLOBIN 28 pg (25-35); MEAN CORPUSCULAR HGB CONC 34 g/dL (31-37); MEAN CORPUSCULAR VOLUME 82 fL (79-100); MONO # 0.4 x10^3/uL (0.0-1.1); MONO % 8 % (0-9); NEUT # 2.3 x10^3uL (1.8-7.7); NEUT % 43 % (31-73); PLATELET COUNT 354 x10^3/uL (140-400); RED BLOOD COUNT 2.63 x10^6/uL (4.30-5.70); RED CELL DISTRIBUTION WIDTH 14.6 % (11.5-14.5); WHITE BLOOD COUNT 5.3 x10^3/uL (4.0-11.0)
[2021-11-28 06:18] LABS: ALBUMIN 1.9 g/dL (3.4-5.0); ALBUMIN/GLOBULIN RATIO 0.6 (1.0-1.7); DIRECT BILIRUBIN 0.1 mg/dL (0.0-0.2); GFR 82.8; POTASSIUM 4.6 mmol/L (3.5-5.1); TOTAL BILIRUBIN 0.2 mg/dL (0.2-1.0); TOTAL PROTEIN 5.2 g/dL (6.4-8.2)
--- NOTE | 2021-11-28 06:29 | NUR ---
AM assessment completed. Pt. has rested quietly between cares this NOC. Large soft BM this AM. Pain controlled with IV analgesics. No changes from previous assessment.
[2021-11-28 07:00] VITALS: BP 124/71
[2021-11-28] MEDS: INSULIN LISPRO 300 UNITS/3 ML VIAL. SQ SCH ×3 (08:00→17:00)
[2021-11-28] MEDS: MULTIVITAMIN with MINERAL TABLET. PO SCH (09:00)
[2021-11-28] MEDS ORDERED: NON FORMULARY ITEM (Insulin Glargine,Hum.rec.anlog (Lantus Solostar) 15 UNIT) SQ SCH (09:00)
[2021-11-28] MEDS: INSULIN GLARGINE SYRINGE. SQ SCH ×2 (10:40→21:00)
[2021-11-28] MEDS: LACTOBACILLUS RHAMNOSUS GG 1 CAPSULE. PO SCH ×2 (10:40→22:13)
[2021-11-28] MEDS: THIAMINE 100 MG TABLET. PO SCH (10:40)
[2021-11-28] MEDS: ASCORBIC ACID 500 MG TABLET PO SCH (10:40)
[2021-11-28] MEDS: FERROUS SULFATE 325 MG TABLET. PO SCH (10:40)
[2021-11-28] MEDS: TAMSULOSIN 0.4 MG CAP.ER.24H. PO SCH (10:40)
[2021-11-28] MEDS: CALCIUM CARBONATE 500 MG TABLET PO SCH ×2 (10:40→22:13)
[2021-11-28] MEDS: GABAPENTIN 100 MG CAPSULE. PO SCH ×3 (10:40→22:13)
[2021-11-28] MEDS: CHOLESTYRAMINE/ASPARTAME 4 GM PACKET PO SCH ×2 (10:41→22:13)
[2021-11-28] MEDS: METOCLOPRAMIDE HCL 10 MG/2 ML VIAL. IVP SCH ×4 (10:41→22:12)
[2021-11-28] MEDS: MUPIROCIN 2% TOPICAL OINTMENT 22GM TUBE. TP SCH (10:41)
[2021-11-28] MEDS: NICOTINE 14MG PATCH. TD SCH (10:42)
[2021-11-28 11:30] VITALS: BP 137/87
[2021-11-28 15:00] VITALS: BP 126/71
[2021-11-28] MEDS: LOPERAMIDE 2 MG CAPSULE PO PRN (16:16)
--- NOTE | 2021-11-28 18:30 | NUR ---
Pt A & 0 x4. Pt VS stable. Pt received medications as ordered and also received PRN pain medications. Pt is x 2 rickie with ADLs and cares. Pt is room air. Pt is NSR on the tele. Pt is able to make needs known. Pt is incontinent of B+B and had BM this shift.
[2021-11-28 19:10] VITALS: BP 122/74
[2021-11-28] MEDS: traZODone 50 MG TABLET. PO SCH (22:13)
[2021-11-28] MEDS ORDERED: INSULIN GLARGINE SYRINGE. SQ ONE (22:15)
[2021-11-28 23:00] VITALS: BP 118/72
[2021-11-29] MEDS: MORPHINE SULFATE 2 MG/ML DISP.SYRIN. IV PRN ×5 (02:23→20:42)
--- NOTE | 2021-11-29 04:57 | PN ---
SUBJECTIVE: The patient is a 41-year-old male in with hyperglycemia, pancreatitis. The patient says he is feeling a little better today. Blood pressure 126/70, respiratory rate 18, pulse 90, afebrile, 99 on room air. The patient tends to be a little bit more alert, seems a little bit more active. The patient's hemoglobin continues to drop. Liver enzymes are coming back down. His abdominal ultrasound was unremarkable as was his hepatitis screen showing hepatic steatosis. OBJECTIVE: LUNGS: Diminished, but clear. CARDIOVASCULAR: Stable. ABDOMEN: Soft, diffuse tenderness. IMPRESSION: Hyperglycemia, poorly controlled; amputation below the knee; elevated liver enzymes; severe protein malnutrition. PLAN: The patient encouraged to eat a better diet. We will continue to monitor him accordingly. Probably he needed to be in a facility to help him with his blood sugars that are continually being poorly controlled at home. ARIADNA DR: Bjorn TID: [id number]
[2021-11-29] MEDS: LEVOTHYROXINE 75 MCG TABLET PO SCH (06:31)
[2021-11-29] MEDS: levoFLOXacin 500 MG TABLET PO SCH (06:31)
--- NOTE | 2021-11-29 06:49 | NUR ---
Has rested quietly throughout NOC. C/O leg pain this AM. IV narcotic given. No changes from previous assessment.
[2021-11-29] MEDS: INSULIN LISPRO 300 UNITS/3 ML VIAL. SQ SCH ×3 (08:00→17:00)
[2021-11-29] MEDS: MUPIROCIN 2% TOPICAL OINTMENT 22GM TUBE. TP SCH (08:36)
[2021-11-29] MEDS: TAMSULOSIN 0.4 MG CAP.ER.24H. PO SCH (08:37)
[2021-11-29] MEDS: FERROUS SULFATE 325 MG TABLET. PO SCH (08:37)
[2021-11-29] MEDS: ASCORBIC ACID 500 MG TABLET PO SCH (08:37)
[2021-11-29] MEDS: GABAPENTIN 100 MG CAPSULE. PO SCH ×3 (08:37→20:42)
[2021-11-29] MEDS: THIAMINE 100 MG TABLET. PO SCH (08:37)
[2021-11-29] MEDS: METOCLOPRAMIDE HCL 10 MG/2 ML VIAL. IVP SCH ×4 (08:37→20:42)
[2021-11-29] MEDS: CALCIUM CARBONATE 500 MG TABLET PO SCH ×2 (08:37→20:42)
[2021-11-29] MEDS: MULTIVITAMIN with MINERAL TABLET. PO SCH (08:37)
[2021-11-29] MEDS: CHOLESTYRAMINE/ASPARTAME 4 GM PACKET PO SCH ×2 (08:37→20:43)
[2021-11-29] MEDS: LACTOBACILLUS RHAMNOSUS GG 1 CAPSULE. PO SCH ×2 (08:37→20:42)
[2021-11-29] MEDS: NICOTINE 14MG PATCH. TD SCH (08:38)
[2021-11-29 09:14] VITALS: BP 124/80
--- NOTE | 2021-11-29 10:05 | NUR ---
Nursing note PT in bed, morning assessments done. Medications adminstered per doctors orders. Meal try handed to PT. PT ate 75% or meal. Verbalized he wanted some pain medication. Pain medication administered per doctors orders. PT aided with a bed carmona. Stool was watery and chalky in appearance. PT cleaned brief changed. Bed low, call light within reach, watchin TV. PT verbalized no other needs. Will continue to monitor.
--- NOTE | 2021-11-29 11:47 | NUR ---
Nursing note PT in bed, had a large bowl movement. PT cleaned and changed by two RNs, all linens changed. PT given a bed bath. All wound dressing changed since they were drianing. wounds cleaned with normal saline. [place] applied including xeroform. Bandages applied. Skin protectant applied to clients bottom. Linens changed, tele patches reapplied, be low and lucked. Call light within reach. PT given 2 diet cokes with ice. PT verbalized no other needs, watching TV. Will continue to monitor.
[2021-11-29 15:41] VITALS: BP 100/58
[2021-11-29 19:15] VITALS: BP 110/66
[2021-11-29] MEDS: LOPERAMIDE 2 MG CAPSULE PO PRN (20:42)
[2021-11-29] MEDS: traZODone 50 MG TABLET. PO SCH (20:42)
[2021-11-29] MEDS: INSULIN GLARGINE SYRINGE. SQ SCH (20:55)
[2021-11-30] MEDS: MORPHINE SULFATE 2 MG/ML DISP.SYRIN. IV PRN ×5 (03:42→21:51)
[2021-11-30 03:49] VITALS: BP 118/70
[2021-11-30] MEDS: LEVOTHYROXINE 75 MCG TABLET PO SCH (05:19)
[2021-11-30] MEDS: levoFLOXacin 500 MG TABLET PO SCH (05:19)
--- NOTE | 2021-11-30 05:52 | NUR ---
AM assessment complete. Denies discomfort at this time. Pain from wounds managed by IV narcotic analgesics. No further loose stools during NOC. 2 this shift prior to antidiarrheal given. Has rested quietly throughout NOC. No changes from previous assessment.
--- NOTE | 2021-11-30 08:00 | NUR ---
morning assessment complete; pts blood sugar was 27 this am. this nurse gave 1 amp of dextrose 50% IV. After attempting to push medication, it was noted that there was swelling to his IV site. IV was d/c and order for oral glucose was given to pt. will attempt another IV.
[2021-11-30] MEDS ORDERED: DEXTROSE ORAL GEL 15 GM TUBE. ONE (08:11)
[2021-11-30] MEDS: THIAMINE 100 MG TABLET. PO SCH (08:18)
[2021-11-30] MEDS: MULTIVITAMIN with MINERAL TABLET. PO SCH (08:19)
[2021-11-30] MEDS: FERROUS SULFATE 325 MG TABLET. PO SCH (08:19)
[2021-11-30] MEDS: CALCIUM CARBONATE 500 MG TABLET PO SCH ×2 (08:19→20:16)
[2021-11-30] MEDS: TAMSULOSIN 0.4 MG CAP.ER.24H. PO SCH (08:19)
[2021-11-30] MEDS: ASCORBIC ACID 500 MG TABLET PO SCH (08:19)
[2021-11-30] MEDS: METOCLOPRAMIDE HCL 10 MG/2 ML VIAL. IVP SCH ×3 (08:20→20:16)
[2021-11-30] MEDS: LACTOBACILLUS RHAMNOSUS GG 1 CAPSULE. PO SCH ×3 (08:20→20:20)
[2021-11-30] MEDS: CHOLESTYRAMINE/ASPARTAME 4 GM PACKET PO SCH ×2 (08:20→20:16)
[2021-11-30] MEDS: NICOTINE 14MG PATCH. TD SCH (08:21)
[2021-11-30] MEDS: INSULIN LISPRO 300 UNITS/3 ML VIAL. SQ SCH ×3 (08:22→17:13)
[2021-11-30] MEDS: GABAPENTIN 100 MG CAPSULE. PO SCH ×3 (08:30→20:16)
[2021-11-30] MEDS: MUPIROCIN 2% TOPICAL OINTMENT 22GM TUBE. TP SCH ×2 (08:30→09:00)
[2021-11-30] MEDS ORDERED: DEXTROSE ORAL GEL 15 GM TUBE. PO PRN (08:45)
[2021-11-30 09:04] LABS: CALCIUM 8.5 mg/dL (8.5-10.1); CREATININE 0.8 mg/dL (0.7-1.3); GFR 107.1; POTASSIUM 4.6 mmol/L (3.5-5.1)
[2021-11-30 11:38] VITALS: BP 117/74
--- NOTE | 2021-11-30 12:24 | PN ---
SUBJECTIVE: A 41-year-old gentleman in with severe hyperglycemia. The patient has been brought under better control. The problem as he continues to eat voraciously and we are trying to get him some Ozempic or Trulicity for 1 week dose. It may also help reduce his appetite. Otherwise, his sugars were down in the low 200s for now, which is marked improvement. OBJECTIVE: VITAL SIGNS: Blood pressure 120/80, respiratory rate 18, pulse 70, afebrile. GENERAL: The patient is alert and oriented. The patient seems to be in agreement with that has been ordering extra food between meals and causing the sugars to spike. Also, the problem is of course he has been in and out of hospitals here for the last month or so with sugars of 600, after they had been brought under control. LUNGS: Otherwise, clear. CARDIOVASCULAR: Stable. ABDOMEN: Soft, diffuse tenderness. EXTREMITIES: No clubbing, cyanosis, or edema except of course the one leg that has been amputated, marked musculoskeletal atrophy as indicated. IMPRESSION: Severe hyperglycemia, type 1 diabetes, amputation below the knee, severe protein malnutrition, liver enzyme elevation. GILMAR/NOAH/KHUSHI DR: GILMAR/jono TID: [id number]
[2021-11-30 15:50] VITALS: BP 126/80
[2021-11-30] MEDS: LOPERAMIDE 2 MG CAPSULE PO PRN (17:16)
[2021-11-30 18:12] VITALS: BP 130/80
[2021-11-30] MEDS: traZODone 50 MG TABLET. PO SCH (20:16)
[2021-11-30] MEDS: INSULIN GLARGINE SYRINGE. SQ SCH (20:18)
[2021-11-30 23:17] VITALS: BP 125/76
--- NOTE | 2021-12-01 01:01 | PN ---
SUBJECTIVE: The patient in with severe hyperglycemia, dehydration. The patient is eating very extensively. Sugars are vacillating, but he seems to be in much better spirits, although he does have his sugars going anywhere from 27-275. Other than that, the patient's liver enzymes are coming down. His albumin is still markedly low at 1.9, severe protein malnutrition. We will continue to monitor him on that as well. Although, he does have a very pallor-appearing complexion. OBJECTIVE: VITAL SIGNS: Blood pressure 117/74, respiratory rate 16, pulse 80, afebrile, 98 on room air. GENERAL: The patient is alert and oriented. He says he is hungry. LUNGS: Diminished. CARDIOVASCULAR: Regular sinus rhythm. ABDOMEN: Soft, nontender. NEUROLOGIC: The patient has marked musculoskeletal atrophy. We will continue to monitor him. He does appear to be even more anemic. We will probably repeat his H and H later today and have that continued to be monitored on him there. IMPRESSION: Severe anemia, severe hyperglycemia, hypoglycemia, history of chronic pancreatitis, severe protein malnutrition. JAMES DR: Bjorn TID: [id number]
[2021-12-01] MEDS: levoFLOXacin 500 MG TABLET PO SCH (06:01)
[2021-12-01] MEDS: LEVOTHYROXINE 75 MCG TABLET PO SCH (06:01)
[2021-12-01] MEDS: MORPHINE SULFATE 2 MG/ML DISP.SYRIN. IV PRN (06:02)
[2021-12-01 06:18] VITALS: BP 100/54
[2021-12-01] MEDS: INSULIN LISPRO 300 UNITS/3 ML VIAL. SQ SCH (07:18)
[2021-12-01] MEDS: NICOTINE 14MG PATCH. TD SCH (07:50)
[2021-12-01] MEDS: GABAPENTIN 100 MG CAPSULE. PO SCH (07:50)
[2021-12-01] MEDS: FERROUS SULFATE 325 MG TABLET. PO SCH (07:50)
[2021-12-01] MEDS: MULTIVITAMIN with MINERAL TABLET. PO SCH (07:50)
[2021-12-01] MEDS: THIAMINE 100 MG TABLET. PO SCH (07:50)
[2021-12-01] MEDS: METOCLOPRAMIDE HCL 10 MG/2 ML VIAL. IVP SCH (07:50)
[2021-12-01] MEDS: ASCORBIC ACID 500 MG TABLET PO SCH (07:50)
[2021-12-01] MEDS: LACTOBACILLUS RHAMNOSUS GG 1 CAPSULE. PO SCH (07:50)
[2021-12-01] MEDS: CALCIUM CARBONATE 500 MG TABLET PO SCH (07:51)
[2021-12-01] MEDS: TAMSULOSIN 0.4 MG CAP.ER.24H. PO SCH (07:51)
[2021-12-01] MEDS: MUPIROCIN 2% TOPICAL OINTMENT 22GM TUBE. TP SCH (07:51)
[2021-12-01] MEDS: LOPERAMIDE 2 MG CAPSULE PO PRN (07:51)
[2021-12-01] MEDS: CHOLESTYRAMINE/ASPARTAME 4 GM PACKET PO SCH (07:51)
[2021-12-01] MEDS ORDERED: LEVO500T9 PO (09:48)
[2021-12-01] MEDS ORDERED: PROC10TA57 PO (09:48)
[2021-12-01] MEDS ORDERED: METO10TA81 PO (09:48)
[2021-12-01] MEDS ORDERED: INSU100I13 SQ (09:48)
--- NOTE | 2021-12-01 09:51 | DISCH ---
HOME HEALTH DISCHARGE/MEDS DISCHARGE INFORMATION: Discharge Date: December 01, 2021 Final Diagnosis: Problems Medical Problems: (1) Elevated liver enzymes Status: Acute Hyperglycemia Condition on Discharge: Stable CODE STATUS: Code Status: Full HOME HEALTH: Face to Face: I certify this patient is under my care and that I, or a nurse practitioner or physician's office support assistant working with me, had a face to face encounter that meets t he physician face to face encounter requirements with this patient on December 01, 2021. Medical Condition(s): DM [facility] For: Assess Cardiopulm Status, Assess & Educate Safety, Diabetic Care, Pain Management, Wound Care Physical Therapy For: Evalulation/Treatment Occupational Therapy For: Evaluation/Treatment Homebound Status Met By: Unsteady balance w/ amb,, Extreme weakness w/ amb. POST DISCHARGE ORDERS: Activity Instructions for Disc: Activity as tolerated Weight Bearing Status after Di: No restrictions DIET AFTER DISCHARGE: ADA CHECKS AFTER DISCHARGE: Checks after discharge: Check blood sugar, ac/hs CERTIFICATION STATEMENT: Certification Statement: Based on the above finding, I certify that this patient is confined to the home and needs intermittent fpc care, physical therapy and/or speech therapy, or continues to need occupational therapy.~ This patient is under my care, and I have initiated the establishment of the plan of care.~ This patient will be followed by myself or a community physician who will periodically review the plan of care. DISCHARGE MEDICATIONS: Home Meds Active Scripts Levofloxacin (LEVOFLOXACIN) 500 Mg Tablet, 500 MG PO DAILY06 for infection for 4 Days, #4 TAB Prov:BAYLEE NEVAREZ MD 11/14/21 Lactobacillus Rhamnosus Gg (CULTURELLE) 1 Each Cap.sprink, 1 CAP PO BID for probiotic for 30 Days, #60 CAP 3 Refills Prov:BAYLEE NEVAREZ MD 11/14/21 Insulin Lispro (HUMALOG) 100 Unit/1 Ml Insuln.pen, 0 UNITS SQ Q6H for elevated blood sugars, #1 EACH 3 Refills Prov:BAYLEE NEVAREZ MD 11/14/21 Gabapentin (GABAPENTIN ) 100 Mg Capsule, 100 MG PO TID for pain for 30 Days, #90 CAP 3 Refills Prov:BAYLEE NEVAREZ MD 11/14/21 Calcium Carbonate (OYSTER SHELL CALCIUM) 500 Mg Tablet, 500 MG PO BID for replacement for 90 Days, #180 TAB 3 Refills Prov:BAYLEE NEVAREZ MD 11/14/21 Insulin Glargine,Hum.rec.anlog (LANTUS SOLOSTAR) 100 Unit/1 Ml Insuln.pen, 15 UNIT SQ DAILY for DM for 90 Days, #3 SYR 3 Refills LAST DOSE GIVEN: DATE:today TIME:am NEXT DOSE DUE: DATE:tomorrow TIME:am Prov:BAYLEE NEVAREZ MD 11/14/21 Reported Medications Ascorbic Acid (VITAMIN C) 500 Mg Capsule.er, 1 CAP PO DAILY for SUPPLEMENT, CAP LAST DOSE GIVEN: DATE:today TIME:am NEXT DOSE DUE: DATE:tomorrow TIME:am 09/27/21 Thiamine Hcl (VITAMIN B-1) 100 Mg Tablet, 1 TAB PO DAILY for SUPPLEMENT, TAB NEXT DOSE DUE: DATE:tomorrow TIME:am 09/27/21 Tamsulosin Hcl (FLOMAX) 0.4 Mg Cap.er.24h, 1 CAP PO DAILY for OVERACTIVE B LADDER, CAP NEXT DOSE DUE: DATE:tomrrow TIME:am 09/27/21 Sodium Zirconium Cyclosilicate (Lokelma) 10 Gm Powd.pack, 10 GM PO BID for SUPPLEMENT, PKT NEXT DOSE DUE: DATE:today TIME:pm 09/27/21 Amino Acids/Protein Hydrolys (PRO-STAT LIQUID) 30 Ml Liquid.pkt, 30 ML PO BID for WOUND HEALING, PKT LAST DOSE GIVEN: DATE:today TIME:am NEXT DOSE DUE: DATE:today TIME:pm 09/27/21 Nicotine (NICODERM CQ 14mg) 1 Each Patch.td24, 1 PATCH TP DAILY for SMOKER, PATCH LAST DOSE GIVEN: DATE:today TIME:am NEXT DOSE DUE: DATE:tomorrow TIME:am 09/27/21 Mupirocin Calcium (MUPIROCIN) 15 Gm Cream..g., 1 MAXIME TP DAILY for WOUND, GM NEXT DOSE DUE: DATE:tomorrow TIME:am 09/27/21 Multivitamin (MULTIVITAMINS) 1 Each Tablet, 1 TAB PO DAILY for SUPPLEMENT, TAB NEXT DOSE DUE: DATE:tomorrow TIME:am 09/27/21 Loperamide Hcl (LOPERAMIDE) 2 Mg Tablet, 1 TAB PO PRN TID PRN for DIARRHEA, TAB NEXT DOSE DUE: DATE:today TIME:when and if needed 09/27/21 Levothyroxine Sodium (LEVOTHYROXINE SODIUM) 75 Mcg Tablet, 1 TAB PO DAILY for THYROID, TAB NEXT DOSE DUE: DATE:tomorrow TIME:am 09/27/21 Ferrous Sulfate (FERROUS SULFATE) 325 Mg Tablet, 325 MG PO DAILY for SUPPLEMENT, TAB LAST DOSE GIVEN: DATE:today TIME:am NEXT DOSE DUE: DATE:tomorrow TIME:am 09/27/21 Cholestyramine (CHOLESTYRAMINE RESIN) 5 Gm Powder, 4 GM PO BID for SUPPLEMENT, GM NEXT DOSE DUE: DATE:today TIME:pm 09/27/21 Trazodone Hcl (TRAZODONE HCL) 50 Mg Tablet, 50 MG PO QHS for insomnia for 1 Day, #1 TAB NEXT DOSE DUE: DATE:ton TIME:pm 07/28/14 BAYLEE NEVAREZ MD December 01, 2021 09:51
--- NOTE | 2021-12-01 13:44 | NUR ---
Discharge Note Patient discharged at 1310 via wheelchair, picked up by family member. VSS @ time of dicharge. Patient verbalized understanding of discharge instructions. IV removed. All belongings taken from room by patient.
[2021-12-02 09:29] LABS: HEMOGLOBIN A1C 14.9 % (4.8-5.6)
== END 2021-12-01 13:10 | disposition home or self-care (01) | DRG 637 ==
LOC: ER 14:09 → ER HOLD 16:48 → 1 SOUTH 20:51
PROVIDERS: ADMIT Family Medicine; ATTEND Family Medicine
DX: E10.65 Type 1 diabetes mellitus with hyperglycemia (principal); E43 Unspecified severe protein-calorie malnutrition; K85.90 Acute pancreatitis without necrosis or infection, unspecified; E87.2 Acidosis; G93.1 Anoxic brain damage, not elsewhere classified; K86.1 Other chronic pancreatitis; Z68.1 Body mass index [BMI] 19.9 or less, adult; D64.9 Anemia, unspecified; E03.9 Hypothyroidism, unspecified; E86.0 Dehydration; I10 Essential (primary) hypertension; K76.0 Fatty (change of) liver, not elsewhere classified; Z87.891 Personal history of nicotine dependence; Z89.512 Acquired absence of left leg below knee; F32.A Depression, unspecified; G62.9 Polyneuropathy, unspecified; K21.9 Gastro-esophageal reflux disease without esophagitis
CPT/HCPCS: 36415; 74176; 76700; 80048; 80053; 82248; 82947; 83036; 83540; 83550; 84134; 85018; 85025; 86705; 86709; 86803; 87340; 96374; 96375; J0780; J1815; J2270; J2405; J2765; 99285-25; J7030

== ENCOUNTER 2021-12-06 22:27 | Emergency (ER) | payer MEDICARE, OTHER ==
[~2021-12-06] VITALS: Ht 185.4 cm; Wt 57.3 kg
[~2021-12-06 22:27] MED LIST changes: +METO10TA81 PO; +PROC10TA57 PO
--- NOTE | 2021-12-06 23:02 | PHYS DOC ---
Past History Past Medical History: Depression, Diabetes Additional Past Medical Histor: ANOXIC BRAIN DAMAGE, ENCEPHALOPATHY, Past Surgical History: Cholecystectomy, Other Additional Past Surgical Histo: LEFT LOWER LEG AMPUTATION Alcohol Use: None Drug Use: Marijuana Adult General Chief Complaint Chief Complaint: HYPERGLYCEMIA HPI HPI Patient is a 41-year-old male presenting to the emergency department for evaluat ion of abdominal pain and hyperglycemia. Patient says that he has a history of pancreatitis and was admitted to a hospital in [facility] last week for pancreatitis. He says he has dealt with pancreatitis for the past 15 years and asked him what the etiology was if it was his gallbladder or alcohol abuse and he said neither is he has had his gallbladder taken out and he does not drink alcohol. He denies fevers chills nausea vomiting diarrhea constipation. He says that he uses injections for his diabetes and has been compliant but his blood sugars have been persistently above 600. He appears nontoxic with normal vital signs. Of note this is patient's fifth ER visit since failure the eighth and it appears the patient was admitted on his last ER visit by Dr. Anderson for pancreatitis and failure to thrive. Review of Systems Review of Systems Constitutional: Denies fever or chills [] Eyes: Denies change in visual acuity, redness, or eye pain [] HENT: Denies nasal congestion or sore throat [] Respiratory: Denies cough or shortness of breath [] Cardiovascular: No additional information not addressed in HPI [] GI: + abdominal pain. No nausea, vomiting, bloody stools or diarrhea [] : Denies dysuria or hematuria [] Musculoskeletal: Denies back pain or joint pain [] Integument: Denies rash or skin lesions [] Neurologic: Denies headache, focal weakness or sensory changes [] All other systems were reviewed and found to be within normal limits, except as documented in this note. Current Medications Current Medications Current Medications Medications (Trade) Dose Ordered Sig/Soledad Start Time Stop Time Status Last Admin Dose Admin Morphine Sulfate (Morphine 4mg Syringe) 4 mg 1X ONCE 12/06/21 23:00 12/06/21 23:01 Ondansetron HCl (Zofran) 4 mg 1X ONCE 12/06/21 23:00 12/06/21 23:01 Sodium Chloride 1,000 ml @ 1,000 mls/hr 1X ONCE 12/06/21 23:00 12/06/21 23:59 Allergies Allergies Allergies Coded Allergies Type Severity Reaction Last Updated Verified No Known Drug Allergies 08/27/15 No Physical Exam Physical Exam Constitutional: Well developed, well nourished, no acute distress, non-toxic appearance. [] HENT: Normocephalic, atraumatic, bilateral external ears normal, oropharynx moist, no oral exudates, nose normal. [] Eyes: PERRLA, EOMI, conjunctiva normal, no discharge. [] Neck: Normal range of motion, no tenderness, supple, no stridor. [] Cardiovascular:Heart rate regular rhythm, no murmur [] Lungs & Thorax: Bilateral breath sounds clear to auscultation [] Abdomen: Bowel sounds normal, soft, no tenderness, no masses, no pulsatile masses. [] Skin: Warm, dry, no erythema, no rash. [] Back: No tenderness, no CVA tenderness. [] Extremities: No tenderness, no cyanosis, no clubbing, ROM intact, no edema. [] Neurologic: Alert and oriented X 3, normal motor function, normal sensory function, no focal deficits noted. [] Current Patient Data Lab Results Laboratory Tests Test 12/06/21 22:52 Glucose (Fingerstick) 392 mg/dL (70-99) H EKG EKG [] Radiology/Procedures Radiology/Procedures [] Heart Score C/O Chest Pain: No Risk Factors: Risk Factors: DM, Current or recent (<one month) smoker, HTN, HLP, family history of CAD, obesity. Risk Scores: Risk Factors: DM, Current or recent (<one month) smoker, HTN, HLP, family history of CAD, obesity. Course & Med Decision Making Course & Med Decision Making I will check labs and imaging treat symptoms and reassess. Patient has multiple abnormality findings which are not severely offer from his baseline but he has slightly worsened anemia and lipase is more elevated than the last draw. Patient says he is still having severe pain and I discussed inpatient versus outpatient treatment and he said he is much too ill to go home. Patient will be given further IV fluids IV insulin had made n.p.o. there is no beds available at [facility] due to staffing and bed shortage and I was told that I would have to transfer the patient so I will call [facility] to see if they can accept the patient. Patient accepted by Dr. Gonzalez. Cheri Disclaimer Cheri Disclaimer This electronic medical record was generated, in whole or in part, using a voice recognition dictation system. Departure Departure: Impression: Primary Impression: Poorly controlled type 1 diabetes mellitus Additional Impressions: Hyperglycemia due to diabetes mellitus Anemia Pancreatitis Transaminitis Failure to thrive in adult Disposition: 02 SHORT TERM HOSPITAL Admitting Physician: Other (Lisa) Condition: GUARDED Referrals: BAYLEE NEVAREZ MD (PCP) Problem Qualifiers PATRICIA ANTHONY DO December 06, 2021 23:02
[2021-12-06] MEDS: ONDANSETRON PF 4 MG/2 ML VIAL. IVP ONE (23:15)
[2021-12-06] MEDS: MORPHINE SULFATE 4 MG/ML DISP.SYRIN. IV ONE (23:15)
[2021-12-06] MEDS: IV NORMAL SALINE 1,000ML 1,000 ML IV ONE (23:16)
--- NOTE | 2021-12-06 23:21 | RAD ---
Exam: CT of abdomen and pelvis without contrast INDICATION: Epigastric abdominal pain, Back pain TECHNIQUE: Sequential axial images through the abdomen and pelvis obtained without IV contrast. Sagit ernie and coronal reformatted images were reconstructed from the axial data and reviewed. Exposure: One or more of the following in the visualized dose reduction techniques were utilized for this examination: 1. Automated exposure control 2. Adjustment of the MA and/or KV according to patient size 3. Use of iterative of reconstructive technique Comparisons: 11/27/2019 FINDINGS: Heart size is normal. No pericardial effusion. Scattered tree-in-bud nodularity noted at the left low er lobe. No pleural effusion. Evaluation solid organs is limited secondary to noncontrast technique. Liver, spleen, pancreas and adrenals are unremarkable. Gallbladder is absent. No perinephric inflammation or hydronephrosis. No renal or ureteral calculi are identified. Bladder is distended with mild diffuse wall thickening. Prostate is not enlarged. Large and small bowel are unremarkable. Appendix is normal. No free intra-abdominal air or fluid. No obstruction. Abdominal aorta has normal course and caliber. No enlarged intra-abdominal lymph nodes are identified. No suspicious osseous lesions or acute fractures. IMPRESSION: 1. Moderate amount stool in colon, correlate for constipation. 2. Mild diffuse soft tissue anasarca, could relate to volume overload. 3. Decreased attenuation of the blood pool which is nonspecific, correlate for anemia. 4. Tree-in-bud nodularity at the left lower lobe may be sections or inflammatory in etiology. Electronically signed by: Shauna Capellan MD (12/06/2021 11:18 PM) [facility]
[2021-12-06 23:25] LABS: BASO # 0.2 x10^3/uL (0.0-0.2); BASO % 3 % (0-3); EOS # 0.8 x10^3/uL (0.0-0.7); EOS % 10 % (0-3); HEMATOCRIT 20.9 % (39.0-53.0); LYMPH # 2.2 x10^3/uL (1.0-4.8); LYMPH % 26 % (24-48); MEAN CORPUSCULAR HEMOGLOBIN 28 pg (25-35); MEAN CORPUSCULAR HGB CONC 33 g/dL (31-37); MEAN CORPUSCULAR VOLUME 84 fL (79-100); MONO # 0.9 x10^3/uL (0.0-1.1); MONO % 11 % (0-9); NEUT # 4.1 x10^3uL (1.8-7.7); NEUT % 50 % (31-73); PLATELET COUNT 566 x10^3/uL (140-400); RED CELL DISTRIBUTION WIDTH 15.2 % (11.5-14.5); WHITE BLOOD COUNT 8.2 x10^3/uL (4.0-11.0)
[2021-12-06 23:42] LABS: CALCIUM 8.6 mg/dL (8.5-10.1); CREATININE 1.2 mg/dL (0.7-1.3); GFR 67.1; POTASSIUM 4.6 mmol/L (3.5-5.1)
[2021-12-06 23:55] LABS: ALBUMIN 2.4 g/dL (3.4-5.0); ALBUMIN/GLOBULIN RATIO 0.7 (1.0-1.7); TOTAL BILIRUBIN 0.2 mg/dL (0.2-1.0); TOTAL PROTEIN 5.8 g/dL (6.4-8.2)
[2021-12-07] MEDS: IV NORMAL SALINE 1,000ML 1,000 ML IV ONE (00:30)
[2021-12-07] MEDS: INSULIN REGULAR 100 UNIT/ML 3ML VIAL. IV ONE (01:11)
[2021-12-07 01:33] VITALS: BP 127/73
== END 2021-12-07 02:20 | disposition short-term general hospital (02) ==
LOC: ER 22:27
DX: E10.65 Type 1 diabetes mellitus with hyperglycemia (principal); D64.9 Anemia, unspecified; K85.90 Acute pancreatitis without necrosis or infection, unspecified; R74.01 Elevation of levels of liver transaminase levels; R62.7 Adult failure to thrive; F32.9 Major depressive disorder, single episode, unspecified; Z68.1 Body mass index [BMI] 19.9 or less, adult
CPT/HCPCS: 36415; 74176; 80053; 82947; 83690; 83880; 84484; 85025; 96361; 96374; 96375; 99285; G0480; J1815; J2270; J2405; J7030